=== PATIENT | female | born 1980 | race Caucasian/White ===

== ENCOUNTER 2017-11-05 21:12 | Emergency (ER) | payer OTHER, BC ==
[~2017-11-05] VITALS: Ht 157.5 cm; Wt 69.8 kg
[~2017-11-05 21:12] MED LIST: LORAZEPAM0.5 MG PO; NORCO 5-325 TA1 EACH PO; OMEGA 3 FISH O1 EACH PO; OMEPRAZOLE20 MG PO; VITAMIN D5000 UNI1 PO; ZOLOFT50 MG PO
[2017-11-05] MEDS ORDERED: CYCLOBENZAPRINE5 MG PO (21:47)
[2017-11-06] MEDS ORDERED: TAMIFLU75 MG PO (01:38)
== END 2017-11-06 02:07 | disposition home or self-care (01) ==
LOC: ED 21:12
DX: J11.1 Influenza due to unidentified influenza virus with other respiratory manifestations (principal); Z98.51 Tubal ligation status; Z90.49 Acquired absence of other specified parts of digestive tract; Z88.8 Allergy status to other drugs, medicaments and biological substances
CPT/HCPCS: 80053; 81001; 84703; 85025; 87502; 96361; 96374; 99283; J2405; J7030; J7040

== ENCOUNTER 2023-11-01 20:52 | Emergency (ER) | payer OTHER, BC ==
[~2023-11-01] VITALS: Ht 160 cm; Wt 74.0 kg
[~2023-11-01 20:52] MED LIST changes: +CYCLOBENZAPRINE5 MG PO; +TAMIFLU75 MG PO
[2023-11-01 21:17] LABS: BASOPHILS 0.1 % (0-2); EOSINOPHILS 0.4 % (0-6); HEMATOCRIT 41.6 % (35.0-50.0); HEMOGLOBIN 14.3 g/dL (12.0-18.0); LYMPHOCYTES 6.1 % (24-44); MCH 29.4 (27-36); MCHC 34.3 g/dl (30-36); MCV 85.8 fl (81-99); NEUTROPHILS 84.4 % (39-80); PLATELET COUNT 206 K/uL (140-440); RBC 4.84 M/ul (4.3-5.7); RDW 13.6 (10.5-15.0)
[2023-11-01 21:18] LABS: BILIRUBIN, URINE NEGATIVE (negative); BLOOD/HGB, URINE SMALL (Negative); KETONE, URINE NEGATIVE (Negative); LEUK ESTERASE, URINE NEGATIVE (negative); NITRITE, URINE NEGATIVE (negative)
[2023-11-01 21:24] LABS: EPITHELIAL CELLS, URINE SQUAMOUS 1+ /lpf (0-1+); WHITE BLOOD CELLS, URINE 0-1 /HPF (0-5)
[2023-11-01 21:25] LABS: REFLEX CULTURE, URINE No (No)
[2023-11-01 21:31] LABS: ALBUMIN 4.5 g/dL (3.4-5.0); ALBUMIN/GLOBULIN RATIO 1.25 (1.1-2.4); ANION GAP 16.4 (7-21); BILIRUBIN, TOTAL 0.3 ng/dL (0.2-1.0); BUN/CREATININE RATIO 7.95 (6.0-28.6); CALCIUM 8.7 mg/dL (8.5-10.1); CREATININE, SERUM 0.88 mg/dL (0.55-1.02); POTASSIUM 3.4 mmol/L (3.5-5.1); PROTEIN, TOTAL 8.1 g/dL (6.4-8.2)
[2023-11-01 23:20] VITALS: BP 116/69
== END 2023-11-01 23:22 | disposition home or self-care (01) ==
LOC: ED 20:52
PROVIDERS: Internal Medicine
DX: R10.31 Right lower quadrant pain (principal); Z88.8 Allergy status to other drugs, medicaments and biological substances
CPT/HCPCS: 36415; 74177; 80053; 81001; 83690; 84703; 85025; 96375; 99284-25; J1885; J2405; J7121; Q9967